=== PATIENT | male | born 1955 | race Caucasian/White ===

== ENCOUNTER → 2017-01-30 | Outpatient (CLI) | payer MEDICARE, OTHER ==
[~2017-01-30] MED LIST: HCTZ PO; LORTAB 10/500 T1 TAB PO; NORCO 5/325 TAB1 TAB PO
--- NOTE | ~2017-01-30 | CT114 ---
[facility] A Service of [facility] RADIOLOGY TEXT RESULTS PATIENT: INDRA SUH LOCATION: [facility] : 57 UNIT #: [id number] AGE: [address]: Malcom Livingston MD SEX: M ORDER DR: [id number] [facility] [address] [place], [place] [address] [id number] O MR#: [id number] Acc #: [id number] NAME: INDRA SUH. : 1955 SEX: M STUDY DATE/TIME: 01/30/2017 16:03 UNIT: [facility] ROOM: STUDY DESCRIPTION: CT Soft Tissue Neck W Cont Attending Physician: Malcom Livingston M.D. Referring Physician: Malcom Livingston M.D. Ordering Physician: Malcom Livingstno M.D. Primary Care Physician: Malcom Livingston M.D. MEDICAL IMAGING REPORT This report is preliminary unless electronic signature is present REVISED REPORT SEE ADDENDUM EXAM Soft tissue neck CT with contrast 01/30/2017 COMPARISON None. CLINICAL HISTORY Left neck mass. PROCEDURE Axial contrast-enhanced soft tissue neck CT with multiplanar reformats with a cutaneous marker in place over the palpable abnormality. TECHNIQUE This CT exam was performed with one or more of the following radiation dose reduction techniques: automatic exposure control, adjustment of mA and/or kV according to patient size, and iterative reconstruction. FINDINGS There is no suspicious soft tissue mass. The palpable abnormality corresponds to a barely perceptible small subcutaneous lipoma. It measures about 17 mm AP, by about 2.5 cm mediolateral and about 5 mm in thickness. It corresponds precisely to the palpable abnormalities indicated by the cutaneous marker. There is no suspicious adenopathy. This study is not optimized for evaluation of the carotid bifurcations but these appear widely patent without evidence of stenosis on either side by NASCET or other criteria. There is cervical spinal degenerative change [facility] A Service of [facility] RADIOLOGY TEXT RESULTS PATIENT: INDRA SUH LOCATION: [facility] : 57 UNIT #: [id number] AGE: [address]: Malcom Livingston MD SEX: M ORDER DR: but no bone erosion or destruction. The visualized lung apices are unremarkable. IMPRESSION The palpable abnormality corresponds to a small subcutaneous lipoma. There is no suspicious adenopathy or solid suspicious mass in the neck on either side. No acute-appearing abnormality is seen. Otherwise, negative exam except for spinal degenerative change. Dictated by... Jarad Rashid M.D. THIS IS AN ELECTRONICALLY VERIFIED REPORT Jarad Rashid M.D. at 02/07/2017 12:16 PM TEV/aa TD: 01/31/2017 09:28 JOB #: [id number] ADDENDUM History is described as a left neck mass, occasionally painful. Left neck mass has been present for approximately 2-3 months. JOB #: [id number] Dictated by... Jarad Rashid M.D. THIS IS AN ELECTRONICALLY VERIFIED REPORT Jarad Rashid M.D. at 02/17/2017 2:22 PM TEV/psc TD: 01/31/2017 20:31 JOB #: [id number] CC: [email or web address] Please Delete MEDICAL IMAGING REPORT Page 1 of 1 COPY
[2017-01-30 15:51] LABS: POC - CREATININE 0.87 mg/dL (0.64-1.27); POC - GFR >60.0 mL/min (>60)
== END | disposition home or self-care (01) ==
LOC: CCAT 15:13
PROVIDERS: Internal Medicine
DX: R59.0 Localized enlarged lymph nodes (principal); M47.899 Other spondylosis, site unspecified
CPT/HCPCS: 70491; 82565; Q9967